=== PATIENT | male | born 1965 | race Caucasian/White ===

== ENCOUNTER 2017-06-07 08:37 | Emergency (ER) | payer OTHER ==
[2017-06-07 08:51] VITALS: RESP 16
[2017-06-07] MEDS ORDERED: NS 1,000 ML IV ONE (09:06)
--- NOTE | 2017-06-07 09:08 | EDPHY ---
H & P Stated Complaint: right flank pain started at 0615, nausea and vomiting x1. Source: Patient, Family Exam Limitations: No limitations - Personal History Current Tetanus/Diphtheria Vaccine: Yes Current Tetanus Diphtheria and Acellular Pertussis (TDAP): Yes - Medical/Surgical History Hx Asthma: No Hx Chronic Respiratory Disease: No Hx Diabetes: No Hx Cardiac Disease: No Hx Renal Disease: No Hx Cirrhosis: No Hx Alcoholism: No Hx HIV/AIDS: No Hx Splenectomy or Spleen Trauma: No Other PMH: pmh:bad disk,. psh:knee surgery - Social History Smoking Status: Never smoked HPI/ROS: CHIEF COMPLAINT: Right flank pain HISTORY OF PRESENT ILLNESS: Patient complains of sudden onset of right flank pain this morning. Woken from sleep. With severe at time of onset. Now 12/01. He was nauseated and vomited x2. It radiated into the suprapubic region and felt bladder fullness. Lasted several hours before subsiding. No position of comfort prior to that. Uncomfortable car ride on the way here. No visible blood in the urine. No diarrhea constipation. No bloody stools or emesis. No fever or chills. No previous history of renal colic, pyelonephritis, renal cyst. Does have a family member who has had kidney stones. No other associated complaints or modifying factors. REVIEW OF SYSTEMS: Ten systems reviewed and are negative unless otherwise noted in the HPI PAST MEDICAL HISTORY: Denies any medical history SOCIAL HISTORY: Nonsmoker. 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 No wheezing, rhonchi or crackles Cardiovascular: Regular rate and rhythm. No murmur. Pulses intact distally Gastrointestinal: Abdomen is soft and nontender. No distention, rigidity or guarding. There is right CVA tenderness that is mild. Back: non-tender, no bony abnormalities Neurological: GCS 15. A&O, nonfocal, normal gait Skin: Warm and dry, no rash. No petechiae or purpura. No ecchymosis Extremities: Nontender, no pedal edema Psychiatric: Mood and affect normal DIFFERENTIAL DIAGNOSES: Including but not limited to renal colic, nephrolithiasis, ureterolithiasis, hydronephrosis, cystitis, pyelonephritis, UTI, colitis, cholecystitis, cholelithiasis MDM: 9:09 a.m. Right flank pain with history and examination consistent with renal colic. Vital signs were well within normal limits. No active vomiting. Nonacute abdomen. Laboratory studies and CT have been ordered. 10:20 a.m. Notified by radiologist Dr. Loyd. There are small renal stones present evidence of recently passed stone. No hydronephrosis. No ureteral jets. No other pathology noted. 10:30 a.m. I have re-evaluated the patient. He is resting comfortably with no complaints of pain at this time. Urinalysis will be performed once he provides a sample. 10:55 a.m. Urinalysis is consistent with stone but no evidence of infection. I have re- evaluated the patient. He is completely pain-free. He has declined any pain medication prescription. He has physically past and capture the stone here in the emergency department. He will take this to the urologist for further evaluation. Return here for worsening pain, fever, chills, difficulty urinating. Discharged home in stable condition. SUPERVISION: Shared visit with Dr. Rubi ([facility]) Constitutional: Initial Vital Signs Temperature (C) 36.4 C 06/07/17 08:48 Heart Rate 76 06/07/17 08:48 Respiratory Rate 16 06/07/17 08:48 Blood Pressure 124/88 H 06/07/17 08:48 O2 Sat (%) 96 06/07/17 08:48 O2 Delivery Mode Room Air Allergies/Adverse Reactions: No Known Allergies Allergy (Unverified 06/07/17 08:51) Home Medications: Medication Instructions Recorded Tamsulosin HCl [Flomax 0.4 MG (*)] 0.4 mg PO DAILY #10 cap 06/07/17 Medical Decision Making - Diagnostics Imaging Results: Imaging Impressions Abdomen/Pelvis CT 06/07/17 09:13 Impression: 1. Nonobstructive calculi right kidney. 2. 2 mm calculus within the bladder probably representing a recently passed calculus. Attention: This CT examination is specifically designed to evaluate patients who are clinically suspected of having acute obstructive uropathy. This examination does not use radiographic contrast, and as such, provides only a limited evaluation of the abdomen, pelvis and retroperitoneum. If there is further clinical suspicion for pathological conditions other than obstructive uropathy, a complete CT evaluation of the abdomen and pelvis utilizing intravenous, oral, and rectal contrast should be considered. Findings discussed with Sergio Deluna PAC at 10:15 hour, 06/07/2017. Other Provider: PHYSICIAN DOCUMENTATION: The patient was evaluated and managed by the Physician Sql Ssrs Ssis Developer and myself. I have reviewed the chart and agree with the findings and plan of care as documented. In addition, I examined the patient myself at 920. History confirmed as severe pain this morning lasting couple of hours but now almost gone. Plan for noncontrast CT scanning to evaluate for renal colic, urinalysis, discussed with patient and consented. Flomax Rx written by Mikie for patient if he has recurrent renal colic with known stone still in right kidney. Did not want pain medications. I am the secondary supervising physician. (Jorge Rubi) - Data Points Laboratory Results: Laboratory Results 06/07/17 09:10 06/07/17 09:10 06/07/17 10:45 Urine Color YELLOW Urine Appearance CLEAR Urine pH 6.0 (5.0-7.5) Ur Specific [place] 1.012 (1.002-1.030) Urine Protein NEGATIVE (NEGATIVE) Urine Ketones 1+ H (NEGATIVE) Urine Blood 3+ H (NEGATIVE) Urine Nitrate NEGATIVE (NEGATIVE) Urine Bilirubin NEGATIVE (NEGATIVE) Urine Urobilinogen NEGATIVE EU EU (0.2-1.0) Ur Leukocyte Esterase NEGATIVE (NEGATIVE) Urine RBC 25-50 /hpf H /hpf (0-3) Urine WBC 1-3 /hpf /hpf (0-3) Ur Epithelial Cells NONE SEEN /lpf /lpf (NONE-1+) Urine Mucus TRACE /lpf /lpf (NONE-1+) Urine Glucose 2+ H (NEGATIVE) Medications Given: Discontinued Medications Sodium Chloride (Ns) 1,000 mls @ 0 mls/hr IV EDNOW ONE; Wide Open PRN Reason: Protocol Stop: 06/07/17 09:07 Last Admin: 06/07/17 09:06 Dose: 1,000 mls Departure - Departure Disposition: Home, Routine, Self-Care Clinical Impression: Nephrolithiasis, Bladder calculus, Renal colic on left side Condition: Good Instructions: Kidney Stones (ED), Renal Colic (ED), How to Strain Your Urine ( ED) Additional Instructions: 1. Continue to strain urine for the next 2 days 2. Contact Urology for follow-up care this week 3. Return to ER for any worsening pain, fever, chills, difficulty urinating, vomiting Referrals: NONE *PRIMARY CARE P,. [Primary Care Provider] - As per Instructions Frank Ji MD [Medical Doctor] - As per Instructions Prescriptions: Tamsulosin HCl [Flomax 0.4 MG (*)] 0.4 mg PO DAILY #10 cap
[2017-06-07 09:20] LABS: % IMMATURE GRANULYOCYTES 0.8 % (0.0-1.1); ADD DIFF? NO; ADD MORPH? NO; ADD SCAN? NO; ATYPICAL LYMPHOCYTE FLAG 0 (0-99); FRAGMENT RBC FLAG 0 (0-99); HEMATOCRIT 45.9 % (40.0-51.0); HEMOGLOBIN 16.6 g/dL (13.7-17.5); LEFT SHIFT FLG 0 (0-99); LIPEMIA HEMOLYSIS FLAG 90 (0-99); MEAN CELL HEMOGLOBIN CONCENTR. 36.2 g/dL (32.4-36.7); MEAN CELL VOLUME 88.4 fL (81.5-99.8); PLATELET CLUMPS FLAG 0 (0-99); PLATELET COUNT 203 10^3/uL (150-400); RED BLOOD CELL COUNT 5.19 10^6/uL (4.40-6.38); RED CELL DISTRIBUTION WIDTH 12.5 % (11.5-15.2)
[2017-06-07 09:36] LABS: ALANINE AMINOTRANSFERASE 53 IU/L (21-72); ALBUMIN 4.1 g/dL (3.5-5.0); ALKALINE PHOSPHATASE 91 IU/L (38-126); ANION GAP 14 mEq/L (8-16); ASPARTATE AMINOTRANSFERASE 34 IU/L (17-59); BILIRUBIN,TOTAL 1.2 mg/dL (0.1-1.4); BILIRUBIN-CONJUGATED 0.3 mg/dL (0.0-0.5); BILIRUBIN-UNCONJUGATED 0.9 mg/dL (0.0-1.1); CALCIUM 9.5 mg/dL (8.5-10.4); CARBON DIOXIDE 23 mEq/l (22-31); CHLORIDE 104 mEq/L (97-110); CREATININE 0.8 mg/dL (0.7-1.3); GLOMERULAR FILTRATION RATE > 60; GLUCOSE 191 mg/dL (70-100); POTASSIUM 4.1 mEq/L (3.5-5.2); SODIUM 141 mEq/L (134-144); TOTAL PROTEIN 6.9 g/dL (6.3-8.2)
[2017-06-07 10:50] LABS: COLOR YELLOW; LEUKOCYTE ESTERASE,URINE NEGATIVE (NEGATIVE); NITRITE,URINE NEGATIVE (NEGATIVE)
[2017-06-07 10:51] LABS: MUCUS TRACE /lpf (NONE-1+); RBC,URINE 25-50 /hpf (0-3)
[2017-06-07 11:11] VITALS: BP 124/85; PULSE 78; TEMP 97.9; O2SAT 97
== END 2017-06-07 11:11 | disposition home or self-care (01) ==
DX: N21.0 Calculus in bladder (principal); E86.9 Volume depletion, unspecified; N20.0 Calculus of kidney

== ENCOUNTER 2017-06-10 21:19 | Emergency (ER) | payer OTHER ==
--- NOTE | 2017-06-10 21:39 | EDPHY ---
H & P Stated Complaint: dx with kidney stones 4 days ago, cont, increased pain, fevers Time Seen by Provider: 06/10/17 21:39 HPI/ROS: CHIEF COMPLAINT: Recurrent flank pain HISTORY OF PRESENT ILLNESS: The patient presents to the ED with recurrent flank pain and subjective fevers. The patient was diagnosed with renal colic 3 days ago in the ER. At that point time, the patient had just passed a small 2 mm stone into his bladder. The patient was noted to have 2 additional small stones noted in his right kidney. Over the past day patient has developed symptoms of recurrent the renal colic. He felt as if he had subjective fevers this evening. The patient denies any vomiting. The patient has been taking ibuprofen and Flomax at home. The patient denies significant past medical history. He takes no additional medications. He has no history of diabetes. REVIEW OF SYSTEMS: A comprehensive 10 point review of systems is otherwise negative aside from elements mentioned in the history of present illness. Source: Patient Exam Limitations: No limitations - Personal History Current Tetanus Diphtheria and Acellular Pertussis (TDAP): Unsure - Medical/Surgical History Hx Asthma: No Hx Chronic Respiratory Disease: No Hx Diabetes: No Hx Cardiac Disease: No Hx Renal Disease: No Hx Cirrhosis: No Hx Alcoholism: No Hx HIV/AIDS: No Hx Splenectomy or Spleen Trauma: No Other PMH: pmh:bad disk, kidney stones. psh:knee surgery - Social History Smoking Status: Never smoked - Physical Exam Exam: General Appearance: Alert, no distress Eyes: Pupils equal and round no pallor or injection ENT, Mouth: Mucous membranes moist Respiratory: There are no retractions, lungs are clear to auscultation Cardiovascular: Regular rate and rhythm Gastrointestinal: Minimal right lower quadrant tenderness to palpation Back: Right CVA tenderness to palpation Neurological: A&O, normal motor function, normal sensory exam, normal cranial nerves Skin: Warm and dry, no rashes Musculoskeletal: Neck is supple nontender Extremities: symmetrical, full range of motion Constitutional: Initial Vital Signs Temperature (C) 37.3 C 06/10/17 21:23 Heart Rate 105 H 06/10/17 21:23 Respiratory Rate 16 06/10/17 21:23 Blood Pressure 126/90 H 06/10/17 21:23 O2 Sat (%) 94 06/10/17 21:23 O2 Delivery Mode Room Air Allergies/Adverse Reactions: No Known Allergies Allergy (Unverified 06/07/17 08:51) Home Medications: Medication Instructions Recorded Tamsulosin HCl [Flomax 0.4 MG (*)] 0.4 mg PO DAILY #10 cap 06/07/17 Hydrocodone/APAP 5/325 [Essex 1 - 2 each PO Q6 PRN #20 tab 06/10/17 5/325] Ondansetron Odt [Zofran Odt] 4 mg PO Q4PRN PRN #20 tab 06/10/17 Medical Decision Making ED Course/Re-evaluation: The patient had an IV established. I reviewed his past medical records. He received a L of normal saline. The patient received 15 mg of IV Toradol once a verified his renal function was within normal limits. The patient is noted to be afebrile in the emergency department. The patient's urine continues to demonstrate no evidence of an infection. The patient is feeling better after IV Toradol. At this point time I suspect he is passing another stone. The patient will be advised to continue his customary aftercare and is given usual return precautions. Additionally the patient is given a prescription [place] for severe pain. The patient is referred back to Urology for further evaluation. Patient is also advised to follow up with a primary care provider for a recheck of his elevated blood sugar. Differential Diagnosis: Differential diagnosis considered includes nephrolithiasis, ureterolithiasis, pyelonephritis - Data Points Laboratory Results: Laboratory Results 06/10/17 21:50 06/10/17 21:50 06/10/17 06/10/17 06/10/17 22:40 21:50 21:50 WBC 14.99 10^3/uL H 10^3/uL (3.80-9.50) RBC 4.96 10^6/uL 10^6/uL (4.40-6.38) Hgb 15.7 g/dL g/dL (13.7-17.5) Hct 44.6 % % (40.0-51.0) MCV 89.9 fL fL (81.5-99.8) MCH 31.7 pg pg (27.9-34.1) MCHC 35.2 g/dL g/dL (32.4-36.7) RDW 12.4 % % (11.5-15.2) Plt Count 201 10^3/uL 10^3/uL (150-400) MPV 10.1 fL fL (8.7-11.7) Neut % (Auto) 80.7 % H % (39.3-74.2) Lymph % (Auto) 8.7 % L % (15.0-45.0) Piatt % (Auto) 9.5 % % (4.5-13.0) Eos % (Auto) 0.2 % L % (0.6-7.6) Baso % (Auto) 0.3 % % (0.3-1.7) Nucleat RBC Rel Count 0.0 % % (0.0-0.2) Absolute Neuts (auto) 12.09 10^3/uL H 10^3/uL (1.70-6.50) Absolute Lymphs (auto) 1.30 10^3/uL 10^3/uL (1.00-3.00) Absolute Monos (auto) 1.43 10^3/uL H 10^3/uL (0.30-0.80) Absolute Eos (auto) 0.03 10^3/uL 10^3/uL (0.03-0.40) Absolute Basos (auto) 0.05 10^3/uL 10^3/uL (0.02-0.10) Absolute Nucleated RBC 0.00 10^3/uL 10^3/uL (0-0.01) Immature Gran % 0.6 % % (0.0-1.1) Immature Gran # 0.09 10^3/uL 10^3/uL (0.00-0.10) Sodium 137 mEq/L mEq/L (134-144) Potassium 3.7 mEq/L mEq/L (3.5-5.2) Chloride 97 mEq/L mEq/L (97-110) Carbon Dioxide 25 mEq/l mEq/l (22-31) Anion Gap 15 mEq/L mEq/L (8-16) BUN 14 mg/dL mg/dL (7-23) Creatinine 0.8 mg/dL mg/dL (0.7-1.3) Estimated GFR > 60 Glucose 238 mg/dL H mg/dL (70-100) Calcium 9.6 mg/dL mg/dL (8.5-10.4) Urine Color YELLOW Urine Appearance HAZY Urine pH 5.0 (5.0-7.5) Ur Specific [place] 1.016 (1.002-1.030) Urine Protein NEGATIVE (NEGATIVE) Urine Ketones TRACE H (NEGATIVE) Urine Blood 3+ H (NEGATIVE) Urine Nitrate NEGATIVE (NEGATIVE) Urine Bilirubin NEGATIVE (NEGATIVE) Urine Urobilinogen NEGATIVE EU EU (0.2-1.0) Ur Leukocyte Esterase TRACE H (NEGATIVE) Urine RBC 3-5 /hpf H /hpf (0-3) Urine WBC 15-25 /hpf H /hpf (0-3) Ur Epithelial Cells NONE SEEN /lpf /lpf (NONE-1+) Urine Bacteria TRACE /hpf H /hpf (NONE SEEN) Urine Mucus TRACE /lpf /lpf (NONE-1+) Urine Glucose 3+ H (NEGATIVE) Medications Given: Discontinued Medications Sodium Chloride (Ns) 1,000 mls @ 0 mls/hr IV ONCE ONE PRN Reason: Wide Open Stop: 06/10/17 21:46 Last Admin: 06/10/17 21:45 Dose: 1,000 mls Departure - Departure Disposition: Home, Routine, Self-Care Clinical Impression: Renal colic on right side Condition: Good Instructions: Renal Colic (ED) Additional Instructions: 1. Take Ibuprofen or Motrin 600 mg by mouth three times a day. 2. [place] as needed for severe pain 3. Flomax as directed 4. Zofran as needed for nausea 5. Strain urine as directed 6. Return to the Emergency Department for intractable pain, fever or vomiting. 7. Followup with the urologist you have been referred to for unimproved symptoms. 8. Please follow up with the primary care provider for a recheck of your blood sugar as it was elevated today. You have been given the contact number of our on-call primary care provider Dr. connolly who would be happy to see you in follow- up. You have also been given the number for Dr. Ramsey our urologist. Referrals: Jeremías Connolly DO [Medical Doctor] - As per Instructions Damon Ramsey MD [Medical Doctor] - As per Instructions
[2017-06-10] MEDS ORDERED: NS 1,000 ML IV ONE (21:45)
[2017-06-10 22:02] LABS: % IMMATURE GRANULYOCYTES 0.6 % (0.0-1.1); ABSOLUTE IMMATURE GRANULOCYTES 0.09 10^3/uL (0.00-0.10); ADD DIFF? NO; ADD MORPH? NO; ADD SCAN? NO; ATYPICAL LYMPHOCYTE FLAG 0 (0-99); FRAGMENT RBC FLAG 0 (0-99); HEMATOCRIT 44.6 % (40.0-51.0); HEMOGLOBIN 15.7 g/dL (13.7-17.5); LEFT SHIFT FLG 0 (0-99); LIPEMIA HEMOLYSIS FLAG 90 (0-99); MEAN CELL HEMOGLOBIN 31.7 pg (27.9-34.1); MEAN CELL HEMOGLOBIN CONCENTR. 35.2 g/dL (32.4-36.7); MEAN CELL VOLUME 89.9 fL (81.5-99.8); MEAN PLATELET VOLUME 10.1 fL (8.7-11.7); PLATELET CLUMPS FLAG 0 (0-99); PLATELET COUNT 201 10^3/uL (150-400); RED BLOOD CELL COUNT 4.96 10^6/uL (4.40-6.38); RED CELL DISTRIBUTION WIDTH 12.4 % (11.5-15.2)
[2017-06-10 22:38] LABS: ANION GAP 15 mEq/L (8-16); CALCIUM 9.6 mg/dL (8.5-10.4); CARBON DIOXIDE 25 mEq/l (22-31); CHLORIDE 97 mEq/L (97-110); CREATININE 0.8 mg/dL (0.7-1.3); GLOMERULAR FILTRATION RATE > 60; GLUCOSE 238 mg/dL (70-100); POTASSIUM 3.7 mEq/L (3.5-5.2); SODIUM 137 mEq/L (134-144)
[2017-06-10] MEDS ORDERED: KETOROLAC 30 MG/1 ML SDV IVP ONE (22:48)
[2017-06-10 22:50] LABS: COLOR YELLOW; LEUKOCYTE ESTERASE,URINE TRACE (NEGATIVE); NITRITE,URINE NEGATIVE (NEGATIVE)
[2017-06-10 23:01] LABS: BACTERIA TRACE /hpf (NONE SEEN); MUCUS TRACE /lpf (NONE-1+); WBC,URINE 15-25 /hpf (0-3)
[2017-06-10] MEDS ORDERED: ONDANSETRON 4MG PREPACK#2 BTL TAKEHOME ONE (23:07)
[2017-06-10] MEDS ORDERED: HYDROCOD/APAP 5/325 PREPACK#6 BTL TAKEHOME ONE (23:07)
[2017-06-10 23:51] VITALS: BP 107/70; PULSE 82; RESP 20; TEMP 98.4; O2SAT 95
== END 2017-06-10 23:33 | disposition home or self-care (01) ==
DX: N23 Unspecified renal colic (principal)
CPT/HCPCS: J1885

== ENCOUNTER 2017-06-12 15:13 | Emergency (ER) | payer OTHER ==
[2017-06-12 15:44] VITALS: BP 134/95; PULSE 80; RESP 16; TEMP 98.6; O2SAT 95
--- NOTE | 2017-06-12 16:17 | EDPHY ---
H & P Stated Complaint: Discomfort palm R hand that started day after he had IV on Time Seen by Provider: 06/12/17 16:01 HPI/ROS: Chief Complaint: Right hand pain HPI: 51-year-old male who was seen 3 times this week for a kidney stone developed pain in the palm of his right hand yesterday. Patient states that deep aching and the base of the palm of his hand. He has a treating into the IV that he had in his right AC. States that the IV was taken out he did have some swelling some redness but has since gone down. Denies any numbness or weakness. No fevers or chills. Has not had any further erythema. Does not have a history of any injuries. He also states that his kidney stone pain has improved. ROS: 10 point Review of Systems is negative except as noted in the HPI. PMH: Kidney stones Physical Exam: General: Awake, alert, no acute distress Right hand: He has got minimal tenderness in the deep flexors at the base of his carpals. He has 5 in 5 flexion extension strength in all digits. He has excellent opposition. Sensations intact in the radial, median and ulnar nerve distribution. Capillary refills less than 2 seconds. Right arm: There is a vena puncture site noted in his right AC. There is no tenderness. There are no erythema. There is no noted fluid collection. There is no palpable cord. Skin: No rash - Personal History Current Tetanus Diphtheria and Acellular Pertussis (TDAP): Yes - Medical/Surgical History Hx Asthma: No Hx Chronic Respiratory Disease: No Hx Diabetes: No Hx Cardiac Disease: No Hx Renal Disease: No Hx Cirrhosis: No Hx Alcoholism: No Hx HIV/AIDS: No Hx Splenectomy or Spleen Trauma: No Other PMH: pmh:bad disk, kidney stones. psh:knee surgery - Social History Smoking Status: Never smoked Constitutional: Initial Vital Signs Temperature (C) 37 C 06/12/17 15:35 Heart Rate 80 06/12/17 15:35 Respiratory Rate 16 06/12/17 15:35 Blood Pressure 134/95 H 06/12/17 15:35 O2 Sat (%) 95 06/12/17 15:35 O2 Delivery Mode Room Air Allergies/Adverse Reactions: No Known Allergies Allergy (Verified 06/12/17 15:40) Home Medications: Medication Instructions Recorded Tamsulosin HCl [Flomax 0.4 MG (*)] 0.4 mg PO DAILY #10 cap 06/07/17 Medical Decision Making ED Course/Re-evaluation: Patient with hand pain after IV in his right arm. He is completely neurologically and vascularly intact. Cap refills is intact. Has minimal reproducible tenderness. No evidence of acute neurologic or ischemic process at this time. No evidence of DVT or acute thrombophlebitis. Will discharge with follow-up with primary care physician, return for worsening. Departure - Departure Disposition: Home, Routine, Self-Care Clinical Impression: Hand pain Condition: Good Instructions: Arthralgia (ED) Additional Instructions: Follow up with your primary care physician in 2-4 days for any concerns. Referrals: NONE *PRIMARY CARE P,. [Primary Care Provider] - As per Instructions
== END 2017-06-12 16:37 | disposition home or self-care (01) ==
DX: M79.641 Pain in right hand (principal)